=== PATIENT | female | born 1990 | race African-American/Black ===

== ENCOUNTER 2017-12-13 03:22 | Emergency (ER) | payer SELFPAY ==
[2017-12-13] MEDS ORDERED: LIDOCAINE 1% INJ-PF (10 MG/ML) 30 ML SDV INJ ONE (03:35)
--- NOTE | 2017-12-13 03:55 | ER Document Report ---
ED General - General Chief Complaint: Thumb Injury Stated Complaint: THUMB INFECTION Time Seen by Provider: 12/13/17 03:34 Mode of Arrival: Ambulatory Information source: Patient Notes: 27-year-old female presents with 4 day duration of thumb pain. Patient has she has been soaking and believes it is affected, she denies a history of diabetes, notes it started as a hangnail TRAVEL OUTSIDE OF THE [place] IN LAST 30 DAYS: No - HPI Onset: Last week Onset/Duration: Persistent, Worse Quality of pain: Achy Severity: Mild Pain Level: 1 Associated symptoms: Other Exacerbated by: Movement Relieved by: Denies Similar symptoms previously: No Recently seen / treated by doctor: No - Related Data Allergies/Adverse Reactions: No Known Allergies Allergy (Verified 08/06/15 10:20) Past Medical History - Social History Smoking Status: Never Smoker Cigarette use (# per day): No Chew tobacco use (# tins/day): No Smoking Education Provided: No Family History: DM, Hyperlipidemia, Hypertension Pulmonary Medical History: Reports: Hx Asthma, Hx Bronchitis - Immunizations Immunizations up to date: Yes Hx Diphtheria, Pertussis, Tetanus Vaccination: Yes Review of Systems - Review of Systems Notes: REVIEW OF SYSTEMS: CONSTITUTIONAL : Denies fever, chills, or sweats. Denies recent illness. EENT: Denies eye, ear, throat, or mouth pain or symptoms. Denies nasal or sinus congestion or discharge. Denies throat, tongue, or mouth swelling or difficulty swallowing. CARDIOVASCULAR: Denies chest pain. Denies palpitations or racing or irregular heart beat. Denies ankle edema. RESPIRATORY: Denies cough, cold, or chest congestion. Denies shortness of breath, difficulty breathing, or wheezing. GASTROINTESTINAL: Denies abdominal pain or distention. Denies nausea, vomiting , or diarrhea. Denies blood in vomitus, stools, or per rectum. Denies black, tarry stools. Denies constipation. GENITOURINARY: Denies difficulty urinating, painful urination, burning, frequency, blood in urine, or discharge. FEMALE GENITOURINARY: Denies vaginal bleeding, heavy or abnormal periods, irregular periods. Denies vaginal discharge or odor. MUSCULOSKELETAL: Denies back or neck pain or stiffness. Denies joint pain or swelling. SKIN: Admits to right hand first digit swelling tenderness HEMATOLOGIC : Denies easy bruising or bleeding. LYMPHATIC: Denies swollen, enlarged glands. NEUROLOGICAL: Denies confusion or altered mental status. Denies passing out or loss of consciousness. Denies dizziness or lightheadedness. Denies headache. Denies weakness or paralysis or loss of use of either side. Denies problems with gait or speech. Denies sensory loss, numbness, or tingling. Denies seizures. PSYCHIATRIC: Denies anxiety or stress. Denies depression, suicidal ideation, or homicidal ideation. ALL OTHER SYSTEMS REVIEWED AND NEGATIVE. PHYSICAL EXAMINATION: GENERAL: Well-appearing, well-nourished and in no acute distress. HEAD: Atraumatic, normocephalic. EYES: Pupils equal round extraocular movements intact, conjunctiva are normal. ENT: Nares patent NECK: Normal range of motion LUNGS: No respiratory distress Musculoskeletal: Normal range of motion NEUROLOGICAL: Normal speech, normal gait. PSYCH: Normal mood, normal affect. SKIN: Paronychia noted on the medial aspect of the right hand first digit mild edema Physical Exam - Vital signs Vitals: Temp Pulse Resp BP Pulse Ox 98.9 F 97 18 130/72 H 99 12/13/17 03:26 12/13/17 03:26 12/13/17 03:26 12/13/17 03:26 12/13/17 03:26 Course - Re-evaluation Re-evalutation: 12/13/17 04:17 After digital nerve block was performed a incision was made over the paronychia I moderate amount of pus was drained, patient handled the procedure well she will be placed on antibiotics and given close follow-up After performing a Medical Screening Examination, I estimate there is LOW risk for OPEN FRACTURE, COMPARTMENT SYNDROME, TENDON RUPTURE, ACUTE NEUROVASCULAR INJURY, or RETAINED FOREIGN BODY, thus I consider the discharge disposition reasonable. Also, there is no evidence or peritonitis, sepsis, or toxicity. I have reevaluated this patient multiple times and no significant life threatening changes are noted. The patient and I have discussed the diagnosis and risks, and we agree with discharging home with close follow-up with the understanding that symptoms and presentations can change. We also discussed returning to the Emergency Department immediately if new or worsening symptoms occur. We have discussed the symptoms which are most concerning (e.g., changing or worsening pain, fever, numbness, weakness, cool or painful digits) that necessitate immediate return. - Vital Signs Vital signs: Temp Pulse Resp BP Pulse Ox 98.9 F 91 18 127/87 H 100 12/13/17 03:26 12/13/17 04:01 12/13/17 04:01 12/13/17 04:01 12/13/17 04:01 Procedures - Incision and Drainage Right Thumb Time completed: 03:35 Type: Simple Anesthetic type: 1% Lidocaine mL's of anesthetic: 10 Blade size: 11 Incision Method: Incision made by scalpel Amount/type of drainage: moderate amount of pus - Additional Procedures digital nerve block Time performed: 03:30 - using 10 cc of 1% lido without epi complete nerve block performed no complications Discharge - Discharge Clinical Impression: Paronychia Condition: Stable Disposition: HOME, SELF-CARE Instructions: Paronychia ([facility]) Additional Instructions: Follow up with your physician tomorrow for further care or return to the ED IMMEDIATELY if symptoms worsen or new concerns occur. If you cannot afford to follow up with your primary care physician a list of low cost clinics have been provided at the end of your discharge papers as well. Prescriptions: Cephalexin Monohydrate [Keflex 500 mg Capsule] 500 mg PO Q6H 5 Days capsule Sulfamethoxazole/Trimethoprim [Bactrim Ds Tablet] 2 each PO BID #10 tablet
[2017-12-13 04:03] VITALS: BP 127/87
== END 2017-12-13 04:03 | disposition home or self-care (01) ==
LOC: ER 03:22
PROC: 0H9QXZZ Drainage of Finger Nail, External Approach (ICD-10-PCS; principal; 2017-12-13)
DX: L03.011 Cellulitis of right finger (principal)
CPT/HCPCS: 99283

== ENCOUNTER 2018-08-11 08:35 | Emergency (ER) | payer MEDICAID ==
[2018-08-11] MEDS ORDERED: KETOROLAC TROMETHAMINE 60 MG/2 ML SDV IM ONE (09:43)
--- NOTE | 2018-08-11 09:43 | ER Document Report ---
ED General - General Chief Complaint: Headache Stated Complaint: HEADACHE Time Seen by Provider: 08/11/18 09:33 Mode of Arrival: Ambulatory Information source: Patient Notes: This is a 28-year-old female with no medical problems who presents to the emergency room with insomnia and right-sided headache. Patient states she is not been able to get the sleep for the last 24 hours. She states that the headache is come on after. She denies any fever, chills, nausea or vomiting peer she denies any rash or tick bites. She denies any photophobia or neck stiffness. TRAVEL OUTSIDE OF THE [place] IN LAST 30 DAYS: No - HPI Onset: Yesterday Onset/Duration: Gradual Quality of pain: Dull Severity: Mild Pain Level: Denies Associated symptoms: denies: Chest pain, Fever, Shortness of breath Exacerbated by: Denies Relieved by: Denies Similar symptoms previously: No Recently seen / treated by doctor: No - Related Data Allergies/Adverse Reactions: No Known Allergies Allergy (Verified 08/11/18 08:36) Past Medical History - General Information source: Patient - Social History Smoking Status: Never Smoker Cigarette use (# per day): No Chew tobacco use (# tins/day): No Frequency of alcohol use: None Drug Abuse: None Lives with: Family Family History: DM, Hyperlipidemia, Hypertension Patient has suicidal ideation: No Patient has homicidal ideation: No - Medical History Medical History: Negative Pulmonary Medical History: Reports: Hx Asthma, Hx Bronchitis Renal/ Medical History: Denies: Hx Peritoneal Dialysis - Immunizations Immunizations up to date: Yes Hx Diphtheria, Pertussis, Tetanus Vaccination: Yes Review of Systems - Review of Systems Constitutional: denies: Chills, Fever EENT: No symptoms reported Cardiovascular: No symptoms reported Respiratory: No symptoms reported Gastrointestinal: No symptoms reported Genitourinary: No symptoms reported Female Genitourinary: No symptoms reported Musculoskeletal: No symptoms reported Skin: No symptoms reported Hematologic/Lymphatic: No symptoms reported Neurological/Psychological: See HPI Physical Exam - Vital signs Vitals: Temp Pulse Resp BP Pulse Ox 97.7 F 87 20 118/74 99 08/11/18 08:43 08/11/18 08:43 08/11/18 08:43 08/11/18 08:43 08/11/18 08:43 Notes: Physical exam: GENERAL: A 8-year-old female, alert and oriented x3, no acute distress HEAD: Atraumatic, normocephalic. EYES: Pupils equal round and reactive to light, extraocular movements intact, sclera anicteric, conjunctiva are normal. ENT: TMs normal, nares patent, oropharynx clear without exudates. Moist mucous membranes. NECK: Normal range of motion, supple without obvious mass or JVD. LUNGS: Breath sounds clear to auscultation bilaterally and equal. No wheezes rales or rhonchi. HEART: Regular rate and rhythm without murmurs, rubs or gallops. ABDOMEN: Soft, normoactive bowel sounds. No tenderness to palpation. No guarding, no rebound. No masses appreciated. EXTREMITIES: Normal range of motion, no pitting or edema. No clubbing or cyanosis. NEUROLOGICAL: Cranial nerves II through XII grossly intact. Normal speech, moving all extremities. Motor exam is 5/5, sensory is grossly intact, cerebellar (finger to nose) is good, neck is supple, Romberg negative, reflexes symmetrical. PSYCH: Normal mood, normal affect. SKIN: Warm, Dry, normal turgor, no rashes or lesions noted. Course - Re-evaluation Re-evalutation: 08/11/18 12:22 Patient looks quite good: She is ambulating around the emergency department. Her headache is completely resolved. Her only complaints is that she has been having lack of sleep difficulty getting to sleep. - Vital Signs Vital signs: Temp Pulse Resp BP Pulse Ox 97.7 F 85 16 115/64 97 08/11/18 12:59 08/11/18 12:59 08/11/18 12:59 08/11/18 12:59 08/11/18 12:59 - Laboratory Result Diagrams: 08/11/18 09:54 08/11/18 09:54 Laboratory results interpreted by me: 08/11/18 08/11/18 08/11/18 09:54 09:54 09:54 Hgb 11.3 L Hct 34.9 L MCV 72 L MCH 23.2 L RDW 16.8 H BUN 6 L Glucose 113 H Urine Urobilinogen 2.0 H Discharge - Discharge Clinical Impression: Insomnia, Headache Condition: Stable Disposition: HOME, SELF-CARE Additional Instructions: As we discussed, your kidney function tests and sugar looked really good. The thyroid tests were not back yet may take some time: We will call you if they are abnormal. Return to the emergency room for worsening headache, worsening insomnia. Would follow-up with the [facility]: [address] [place] [id number] - A copy of today's labs with you when you go to the clinic. Prescriptions: Zolpidem Tartrate [Ambien 5 mg Tablet] 5 mg PO HSP PRN #7 tablet PRN Reason: Forms: Parent Work Note, Return to Work
[2018-08-11 10:06] LABS: ABSOLUTE EOSINOPHILS # (AUTO) 0.1 10^3/uL (0.0-0.6); ABSOLUTE LYMPHOCYTES (AUTO) 1.7 10^3/uL (0.5-4.7); ABSOLUTE MONOCYTES (AUTO) 0.3 10^3/uL (0.1-1.4); ABSOLUTE NEUT (AUTO) 4.1 10^3/uL (1.7-8.2); BASOPHILS % (AUTO) 0.7 % (0-2); EOSINOPHILS % (AUTO) 2.1 % (0-6); HEMATOCRIT 34.9 % (36.0-47.0); HEMOGLOBIN 11.3 g/dL (12.0-15.5); LYMPHOCYTES % (AUTO) 27.4 % (13-45); MEAN CORPUSCULAR HEMOGLOBIN 23.2 pg (27.0-33.4); MEAN CORPUSCULAR HGB CONC 32.4 g/dL (32.0-36.0); MEAN CORPUSCULAR VOLUME 72 fl (80-97); MONOCYTES % (AUTO) 4.9 % (3-13); PLATELET COUNT 277 10^3/uL (150-450); RED BLOOD COUNT 4.88 10^6/uL (3.72-5.28); RED CELL DISTRIBUTION WIDTH 16.8 % (11.5-14.0); SEGMENTED NEUTROPHILS % (AUTO) 64.9 % (42-78); TOTAL CELLS COUNTED % (AUTO) 100 %; WHITE BLOOD COUNT 6.3 10^3/uL (4.0-10.5)
[2018-08-11 10:12] LABS: APPEARANCE,URINE SLIGHTLY-CLOUDY; BILIRUBIN,URINE NEGATIVE (NEGATIVE); COLOR,URINE YELLOW; GLUCOSE, URINE NEGATIVE (NEGATIVE); KETONES,URINE NEGATIVE (NEGATIVE); LEUKOCYTE ESTERASE,URINE NEGATIVE (NEGATIVE); NITRITE,URINE NEGATIVE (NEGATIVE); PROTEIN,URINE NEGATIVE (NEGATIVE); URINE SPECIFIC GRAVITY 1.018
[2018-08-11 10:53] LABS: ALANINE AMINOTRANSFERASE 20 U/L (9-52); ALBUMIN 3.8 g/dL (3.5-5.0); ALKALINE PHOSPHATASE 71 U/L (38-126); ANION GAP 13 (5-19); ASPARTATE AMINO TRANSFERASE 19 U/L (14-36); BILIRUBIN,DIRECT 0.3 mg/dL (0.0-0.4); BILIRUBIN,TOTAL 0.9 mg/dL (0.2-1.3); BLOOD UREA NITROGEN 6 mg/dL (7-20); CALCIUM 9.2 mg/dL (8.4-10.2); CARBON DIOXIDE 23 mmol/L (22-30); CHLORIDE 103 mmol/L (98-107); GLUCOSE 113 mg/dL (75-110); POTASSIUM 4.4 mmol/L (3.6-5.0); SODIUM 138.9 mmol/L (137-145); TOTAL PROTEIN 7.6 g/dL (6.3-8.2)
[2018-08-11 12:48] LABS: FREE T3 3.74 pg/mL (2.77-5.27); FREE T4 (FREE THYROXINE) 1.21 ng/dL (0.78-2.19)
[2018-08-11 13:00] VITALS: BP 115/64
[2018-08-11 13:02] LABS: THYROID STIMULATING HORMONE 2.87 uIU/mL (0.47-4.68)
== END 2018-08-11 13:00 | disposition home or self-care (01) ==
LOC: ER 08:35
DX: G47.00 Insomnia, unspecified (principal); R51 Headache
CPT/HCPCS: 99284; 96372; 36415; 84439; 84702; 84443; 85025; 80053; 81001; 84481; J1885

== ENCOUNTER 2019-07-21 12:48 | Emergency (ER) | payer MEDICAID ==
[2019-07-21] MEDS ORDERED: IBUPROFEN 800 MG TABLET PO ONE ×2 (13:15→15:45)
--- NOTE | 2019-07-21 13:16 | ER Document Report ---
ED Medical Screen (RME) - General Stated Complaint: HEADACHE Time Seen by Provider: 07/21/19 13:14 Mode of Arrival: Ambulatory Information source: Patient Notes: 29-year-old female presents emergency department with headache for the past 3 days. Reports she is taking [id number] Tylenol without relief of symptoms no other symptoms such as fever vomiting diarrhea. Also complains of left ear hurts. I have greeted and performed a rapid initial assessment of this patient. A comprehensive ED assessment and evaluation of the patient, analysis of test results and completion of the medical decision making process will be conducted by additional ED providers. Dictation of this chart was performed using voice recognition software; therefore, there may be some unintended grammatical errors. TRAVEL OUTSIDE OF THE [place] IN LAST 30 DAYS: No - Related Data Allergies/Adverse Reactions: No Known Allergies Allergy (Verified 07/21/19 13:14) Past Medical History Pulmonary Medical History: Reports: Hx Asthma, Hx Bronchitis Renal/ Medical History: Denies: Hx Peritoneal Dialysis - Immunizations Immunizations up to date: Yes Hx Diphtheria, Pertussis, Tetanus Vaccination: Yes Physical Exam - Vital signs Vitals: Temp Pulse Resp BP Pulse Ox 98.3 F 84 16 129/72 H 100 07/21/19 13:00 07/21/19 13:00 07/21/19 13:00 07/21/19 13:00 07/21/19 13:00 Course - Vital Signs Vital signs: Temp Pulse Resp BP Pulse Ox 98.3 F 84 16 129/72 H 100 07/21/19 13:00 07/21/19 13:00 07/21/19 13:00 07/21/19 13:00 07/21/19 13:00
--- NOTE | 2019-07-21 15:47 | ER Document Report ---
HPI - HPI Patient complains to provider of: Headache left-sided facial pain Time Seen by Provider: 07/21/19 13:14 Onset: Other - 3 days Quality of pain: Pressure Severity: Moderate Pain Level: 3 Context: 29-year-old female presents emergency department with headache left-sided facial pain. Complains of left ear pain denies fever vomiting diarrhea past. Denies history of headaches. Took Tylenol without relief of symptoms. Associated Symptoms: None Exacerbated by: Denies Relieved by: Denies Similar symptoms previously: No Recently seen / treated by doctor: No - REPRODUCTIVE Reproductive: DENIES: : Past Medical History - General Information source: Patient Last Menstrual Period: Every other month Nexplanon in place - Social History Smoking Status: Never Smoker Chew tobacco use (# tins/day): No Frequency of alcohol use: None Drug Abuse: None Lives with: Family Family History: DM, Hyperlipidemia, Hypertension Patient has suicidal ideation: No Patient has homicidal ideation: No Pulmonary Medical History: Reports: Hx Asthma, Hx Bronchitis Renal/ Medical History: Denies: Hx Peritoneal Dialysis - Immunizations Immunizations up to date: Yes Hx Diphtheria, Pertussis, Tetanus Vaccination: Yes Vertical Provider Document - CONSTITUTIONAL Agree With Documented VS: Yes Exam Limitations: No Limitations General Appearance: WD/WN, No Apparent Distress - INFECTION CONTROL TRAVEL OUTSIDE OF THE [place] IN LAST 30 DAYS: No - HEENT HEENT: Atraumatic, Normocephalic. negative: Conjuctival Injection, Normal ENT Exam, Pharyngeal Erythema Notes: Patient complains of left maxillary tenderness - NECK Neck: Normal Inspection, Supple. negative: Lymphadenopathy-Left, Lymphadenopathy-Right - RESPIRATORY Respiratory: Breath Sounds Normal, No Respiratory Distress - CARDIOVASCULAR Cardiovascular: Regular Rate - GI/ABDOMEN Gastrointestinal: Abdomen Soft, Abdomen Non-Tender - MUSCULOSKELETAL/EXTREMETIES Musculoskeletal/Extremeties: MAEW, FROM, Non-Tender - NEURO Level of Consciousness: Awake, Alert, Appropriate Motor/Sensory: No Motor Deficit - DERM Integumentary: Warm, Dry Course - Re-evaluation Re-evalutation: 07/21/19 15:50 Patient was instructed on decongestant, Motrin, instructed to push fluids. She was instructed to return to the emergency department for continuing pain. She verbalized understand all instructions. Dictation of this chart was performed using voice recognition software; therefore, there may be some unintended grammatical errors. - Vital Signs Vital signs: Temp Pulse Resp BP Pulse Ox 98.3 F 84 16 129/72 H 100 07/21/19 13:00 07/21/19 13:00 07/21/19 13:00 07/21/19 13:00 07/21/19 13:00 Discharge - Discharge Clinical Impression: Sinus pain Headache Qualifiers: Headache type: unspecified Headache chronicity pattern: unspecified pattern Intractability: not intractable Qualified Code(s): R51 - Headache Condition: Stable Disposition: HOME, SELF-CARE Instructions: Use of Wymh-Enk-Iriotlc Ibuprofen ([facility]) Additional Instructions: *You have been evaluated for headache, sinus pain Take rsep-nqz-[id number] decongestant such as Zyrtec-D as indicated Take ibuprofen as indicated Follow-up with your primary care within 1 week for recheck Return to the emergency department for concerns worsening condition changes or needs. Forms: Elevated Blood Pressure
[2019-07-21 15:56] VITALS: BP 123/72
== END 2019-07-21 15:52 | disposition home or self-care (01) ==
LOC: ER 12:48
DX: R51 Headache (principal); J34.89 Other specified disorders of nose and nasal sinuses; J45.909 Unspecified asthma, uncomplicated; Z97.5 Presence of (intrauterine) contraceptive device
CPT/HCPCS: 99283; J3490

== ENCOUNTER 2019-07-22 12:16 | Emergency (ER) | payer SELFPAY ==
[2019-07-22] MEDS ORDERED: IBUPROFEN 800 MG TABLET PO ONE (12:48)
[2019-07-22] MEDS ORDERED: DIPHENHYDRAMINE HCL 25 MG CAPSULE PO ONE (12:48)
--- NOTE | 2019-07-22 12:50 | ER Document Report ---
ED Medical Screen (RME) - General Stated Complaint: HEAD/NECK PAIN Time Seen by Provider: 07/22/19 12:45 Mode of Arrival: Ambulatory Information source: Patient Notes: This 29-year-old female with no past medical history presents to the emergency department with left-sided headache/neck pain. Patient reports symptoms for the past 4 days. Denies trauma. Denies fever vomiting diarrhea. Was evaluated yesterday received Motrin reports she felt better. She reports she did take a decongestion and Tylenol at home and no relief of symptoms. Patient complained of maxillary pressure yesterday denies sinus pain today. Patient reports she has been drinking tons of water because that the only thing that makes her head feels better. I have greeted and performed a rapid initial assessment of this patient. A comprehensive ED assessment and evaluation of the patient, analysis of test results and completion of the medical decision making process will be conducted by additional ED providers. Dictation of this chart was performed using voice recognition software; therefore, there may be some unintended grammatical errors. TRAVEL OUTSIDE OF THE [place] IN LAST 30 DAYS: No - Related Data Allergies/Adverse Reactions: No Known Allergies Allergy (Verified 07/21/19 13:14) Past Medical History Pulmonary Medical History: Reports: Hx Asthma, Hx Bronchitis Renal/ Medical History: Denies: Hx Peritoneal Dialysis - Immunizations Immunizations up to date: Yes Hx Diphtheria, Pertussis, Tetanus Vaccination: Yes
[2019-07-22 13:13] LABS: ABSOLUTE EOSINOPHILS # (AUTO) 0.1 10^3/uL (0.0-0.6); ABSOLUTE LYMPHOCYTES (AUTO) 1.8 10^3/uL (0.5-4.7); ABSOLUTE MONOCYTES (AUTO) 0.4 10^3/uL (0.1-1.4); ABSOLUTE NEUT (AUTO) 3.7 10^3/uL (1.7-8.2); BASOPHILS % (AUTO) 0.6 % (0-2); EOSINOPHILS % (AUTO) 1.5 % (0-6); HEMATOCRIT 34.7 % (36.0-47.0); MEAN CORPUSCULAR HEMOGLOBIN 23.1 pg (27.0-33.4); MEAN CORPUSCULAR HGB CONC 31.8 g/dL (32.0-36.0); MEAN CORPUSCULAR VOLUME 73 fl (80-97); MONOCYTES % (AUTO) 6.8 % (3-13); PLATELET COUNT 286 10^3/uL (150-450); RED BLOOD COUNT 4.77 10^6/uL (3.72-5.28); RED CELL DISTRIBUTION WIDTH 17.5 % (11.5-14.0); SEGMENTED NEUTROPHILS % (AUTO) 61.1 % (42-78); TOTAL CELLS COUNTED % (AUTO) 100 %
[2019-07-22 13:20] LABS: APPEARANCE,URINE CLEAR; BILIRUBIN,URINE NEGATIVE (NEGATIVE); COLOR,URINE COLORLESS; GLUCOSE, URINE NEGATIVE (NEGATIVE); KETONES,URINE NEGATIVE (NEGATIVE); LEUKOCYTE ESTERASE,URINE NEGATIVE (NEGATIVE); NITRITE,URINE NEGATIVE (NEGATIVE); PROTEIN,URINE NEGATIVE (NEGATIVE); UROBILINOGEN,URINE NEGATIVE mg/dL (<2.0)
[2019-07-22 13:28] LABS: ALKALINE PHOSPHATASE 94 U/L (38-126); ANION GAP 9 (5-19); ASPARTATE AMINO TRANSFERASE 33 U/L (14-36); BILIRUBIN,DIRECT 0.1 mg/dL (0.0-0.4); BILIRUBIN,TOTAL 0.7 mg/dL (0.2-1.3); BLOOD UREA NITROGEN 6 mg/dL (7-20); CALCIUM 9.1 mg/dL (8.4-10.2); CARBON DIOXIDE 26 mmol/L (22-30); CHLORIDE 101 mmol/L (98-107); GLUCOSE 95 mg/dL (75-110); POTASSIUM 4.2 mmol/L (3.6-5.0); TOTAL PROTEIN 7.6 g/dL (6.3-8.2)
[2019-07-22 14:12] VITALS: BP 142/82
[2019-07-22] MEDS ORDERED: METHOCARBAMOL 500 MG TABLET PO ONE (14:28)
[2019-07-22] MEDS ORDERED: DEXAMETHASONE 4 MG TABLET PO ONE (14:28)
--- NOTE | 2019-07-22 14:33 | ER Document Report ---
HPI - HPI Patient complains to provider of: Headache Time Seen by Provider: 07/22/19 12:45 Onset/Duration: Persistent Quality of pain: Achy Pain Level: 4 Context: Patient presents with left-sided headache and neck pain for the past 4 days. Patient states headache pain is presently resolved although the neck pain persists. Patient denies any injury. Patient states that at home she had been managing her headache by increasing her hydration. Patient denies any fever nausea vomiting or diarrhea. Patient states that Motrin has helped her headache pain at this time. Associated Symptoms: Headache. denies: Fever, Nausea, Sore throat Exacerbated by: Denies Relieved by: Other - Motrin and drinking water Similar symptoms previously: Yes Recently seen / treated by doctor: Yes - ROS ROS below otherwise negative: Yes Systems Reviewed and Negative: Yes All other systems reviewed and negative - CONSTITUTIONAL Constitutional: DENIES: Fever, Chills - EENT EENT: DENIES: Sore Throat - NEURO Neurology: REPORTS: Headache - GASTROINTESTINAL Gastrointestinal: DENIES: Nausea, Patient vomiting - REPRODUCTIVE Reproductive: DENIES: : - MUSCULOSKELETAL Musculoskeletal: REPORTS: Neck Pain. 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 IN LAST 30 DAYS: No - HEENT HEENT: Atraumatic, Normal ENT Exam, Normocephalic - NECK Neck: Normal Inspection, Supple, Other - No meningismus. negative: Lymphadenopathy-Left, Lymphadenopathy-Right - RESPIRATORY Respiratory: Breath Sounds Normal, No Respiratory Distress - CARDIOVASCULAR Cardiovascular: Regular Rate, Regular Rhythm - BACK Back: Abnormal Inspection - Left trapezius muscle tenderness. negative: CVA Tenderness-Right, CVA Tenderness-Left - MUSCULOSKELETAL/EXTREMETIES Musculoskeletal/Extremeties: MAEW, FROM, Non-Tender - NEURO Level of Consciousness: Awake, Alert, Appropriate Motor/Sensory: No Motor Deficit - DERM Integumentary: Warm, Dry, No Rash Course - Re-evaluation Re-evalutation: 07/22/19 14:30 patient presents stating that headache pain has presently resolved at this time. Patient does still complain of left-sided neck pain at this time. No meningismus, patient nontoxic in appearance. Patient presents with likely tension headache at this time. - Vital Signs Vital signs: Temp Pulse Resp BP Pulse Ox 97.6 F 94 17 142/82 H 100 07/22/19 14:11 07/22/19 14:11 07/22/19 14:11 07/22/19 14:11 07/22/19 14:11 - Laboratory Result Diagrams: 07/22/19 13:00 07/22/19 13:00 Laboratory results interpreted by me: 07/22/19 07/22/19 13:00 13:00 Hgb 11.0 L Hct 34.7 L MCV 73 L MCH 23.1 L MCHC 31.8 L RDW 17.5 H Sodium 136.1 L BUN 6 L 07/22/19 14:31 Labs- Entire Visit 07/22/19 07/22/19 07/22/19 13:00 13:00 13:00 WBC 6.0 RBC 4.77 Hgb 11.0 L Hct 34.7 L MCV 73 L MCH 23.1 L MCHC 31.8 L RDW 17.5 H Plt Count 286 Lymph % (Auto) 30.0 Carson % (Auto) 6.8 Eos % (Auto) 1.5 Baso % (Auto) 0.6 Absolute Neuts (auto) 3.7 Absolute Lymphs (auto) 1.8 Absolute Monos (auto) 0.4 Absolute Eos (auto) 0.1 Absolute Basos (auto) 0.0 Seg Neutrophils % 61.1 Sodium 136.1 L Potassium 4.2 Chloride 101 Carbon Dioxide 26 Anion Gap 9 BUN 6 L Creatinine 0.57 Est GFR ( Amer) > 60 Est GFR (MDRD) Non-Af > 60 Glucose 95 POC Glucose Calcium 9.1 Total Bilirubin 0.7 Direct Bilirubin 0.1 Neonat Total Bilirubin Not Reportable Neonat Direct Bilirubin Not Reportable Neonat Indirect Bili Not Reportable AST 33 ALT 30 Alkaline Phosphatase 94 Total Protein 7.6 Albumin 4.0 Urine Color COLORLESS Urine Appearance CLEAR Urine pH 7.0 Ur Specific [place] 1.000 Urine Protein NEGATIVE Urine Glucose (UA) NEGATIVE Urine Ketones NEGATIVE Urine Blood NEGATIVE Urine Nitrite NEGATIVE Urine Bilirubin NEGATIVE Urine Urobilinogen NEGATIVE Ur Leukocyte Esterase NEGATIVE Urine WBC (Auto) 1 Squamous Epi Cells Auto <1 Urine Ascorbic Acid NEGATIVE Urine HCG, Qual NEGATIVE 07/22/19 13:55 WBC RBC Hgb Hct MCV MCH MCHC RDW Plt Count Lymph % (Auto) [place] % (Auto) Eos % (Auto) Baso % (Auto) Absolute Neuts (auto) Absolute Lymphs (auto) Absolute Monos (auto) Absolute Eos (auto) Absolute Basos (auto) Seg Neutrophils % Sodium Potassium Chloride Carbon Dioxide Anion Gap BUN Creatinine Est GFR ( Amer) Est GFR (MDRD) Non-Af Glucose POC Glucose 86 Calcium Total Bilirubin Direct Bilirubin Neonat Total Bilirubin Neonat Direct Bilirubin Neonat Indirect Bili AST ALT Alkaline Phosphatase Total Protein Albumin Urine Color Urine Appearance Urine pH Ur Specific [place] Urine Protein Urine Glucose (UA) Urine Ketones Urine Blood Urine Nitrite Urine Bilirubin Urine Urobilinogen Ur Leukocyte Esterase Urine WBC (Auto) Squamous Epi Cells Auto Urine Ascorbic Acid Urine HCG, Qual Discharge - Discharge Clinical Impression: Tension headache Condition: Stable Disposition: HOME, SELF-CARE Instructions: Headache ([facility]), Muscle Relaxers ([facility]), Tension Headache ([facility]) Additional Instructions: Return immediately for any new or worsening symptoms Followup with your primary care provider, call tomorrow to make a followup a ppointment Prescriptions: Methocarbamol [Robaxin 500 Mg Tablet] 500 mg PO QID PRN #20 tablet PRN Reason: Forms: Return to Work Referrals: GORDY CHACON MD [ACTIVE STAFF] - Follow up as needed LINDA BRITTON MD [ACTIVE STAFF] - Follow up as needed JENNIFER LUI MD [ACTIVE STAFF] - Follow up as needed
== END 2019-07-22 14:44 | disposition home or self-care (01) ==
LOC: ER 12:16
DX: G44.209 Tension-type headache, unspecified, not intractable (principal); M54.2 Cervicalgia; M54.6 Pain in thoracic spine; J45.909 Unspecified asthma, uncomplicated
CPT/HCPCS: 36415; 80053; 81001; 81025; 82962; 85025; 99284